=== PATIENT | male | born 1995 | race Caucasian/White ===

== ENCOUNTER 2017-10-20 03:14 | Emergency (ER) | payer BC ==
[~2017-10-20] VITALS: Ht 177.8 cm; Wt 78.3 kg
[2017-10-20 03:19] VITALS: TEMP 36.5; Ht 177.8 cm; Wt 78.3 kg
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
[2017-10-20 04:13] LABS: BASO % 0.4 %; BASO ABS # 0.02 K/uL (0-0.2); EOS ABS # 0.11 K/uL (0-0.5); HEMATOCRIT 40.6 % (42-52); HEMOGLOBIN 14.7 g/dL (14.0-18.0); IG# 0.02 K/uL (0.00-0.02); LYMPH % 33.1 %; MEAN CELL VOLUME 89.2 fL (80-100); MEAN CORPUSCULAR HEMOGLOBIN 32.3 pg (25-34); MEAN CORPUSCULAR HGB CONC 36.2 g/dl (32-36); MEAN PLATELET VOLUME 10.6 fL (7.4-10.4); MONO % 5.7 %; MONO ABS # 0.31 K/uL (0.11-0.59); NEUT % 58.4 %; NEUT ABS # 3.17 K/uL (1.4-6.5); PLATELET COUNT 262 K/uL (130-400); RED CELL DISTRIBUTION WIDTH CV 12.5 % (11.5-14.5); RED CELL DISTRIBUTION WIDTH SD 40.1 fL (36.4-46.3); WHITE BLOOD COUNT 5.43 K/uL (4.8-10.8)
[2017-10-20 04:34] LABS: ALBUMIN 4.3 gm/dl (3.4-5.0); ALT/SGPT 31 U/L (12-78); AST/SGOT 27 U/L (15-37); BLOOD UREA NITROGEN 15 mg/dl (7-18); CALCIUM 9.1 mg/dl (8.5-10.1); CARBON DIOXIDE 28 mmol/L (21-32); CREATININE 1.03 mg/dl (0.60-1.40); GLUCOSE 97 mg/dl (70-99); POTASSIUM 3.5 mmol/L (3.5-5.1); SODIUM 137 mmol/L (136-145)
[2017-10-20 04:45] LABS: ALKALINE PHOSPHATASE 100 U/L (45-117); TOTAL PROTEIN 7.5 gm/dl (6.4-8.2)
[2017-10-20] MEDS ORDERED: LACT3000 PO (04:48)
[2017-10-20 05:57] VITALS: BP 113/64; PULSE 95; O2SAT 98
--- NOTE | 2017-10-20 06:50 | DIAGNOSTIC IMAGING REPORT ---
CHEST ONE VIEW PORTABLE CLINICAL HISTORY: sob, palpitations COMPARISON STUDY: No previous studies for comparison. FINDINGS: The bones soft tissues and hemidiaphragms are normal. The cardiomediastinal silhouette is normal. The lungs are clear. The pulmonary vasculature is normal. IMPRESSION: Negative chest. The above report was generated using voice recognition software. It may contain grammatical, syntax or spelling errors. Electronically signed by: Rene Ibanez M.D. 10/20/2017 6:49 AM Dictated Date/Time: 10/20/2017 6:49 AM
== END 2017-10-20 06:00 | disposition home or self-care (01) ==
LOC: C.EDB 03:16 → C.EDA 06:00
DX: R00.2 Palpitations (principal); F17.210 Nicotine dependence, cigarettes, uncomplicated